=== PATIENT | male | born 1990 | race African-American/Black ===

== ENCOUNTER 2016-12-13 12:18 | Emergency (ER) | payer SELFPAY ==
[2016-12-13 12:32] VITALS: BP 110/77
--- NOTE | 2016-12-13 12:34 | ER Document Report ---
ED Medical Screen (RME) - General Chief Complaint: Diarrhea Stated Complaint: ABDOMINAL PAIN Time seen by provider: 12:32 Mode of Arrival: Ambulatory Information source: Patient Notes: 26-year-old male presents to ED for feeling sick yesterday with some abdominal pain yesterday. He states he's had some diarrhea yesterday and this morning no diarrhea now. States symptoms are all relief now but the doctor states that he has to have a work note come back to work. I have greeted and performed a rapid initial assessment of this patient. A comprehensive ED assessment and evaluation of the patient, analysis of test results and completion of medical decision making process will be conducted by an additional ED providers. TRAVEL OUTSIDE OF THE [place] IN LAST 30 DAYS: No - Related Data Allergies/Adverse Reactions: No Known Allergies Allergy (Unverified 12/17/13 10:28) Past Medical History Musculoskeltal Medical History: Reports Hx Musculoskeletal Trauma Traumatic Medical History: Reports: Hx Fractures - jaw Past Surgical History: Reports: Hx Orthopedic Surgery - jaw - Immunizations Immunizations up to date: Yes Hx Diphtheria, Pertussis, Tetanus Vaccination: Yes - 2015 Physical Exam - Vital signs Vitals: Temp Pulse Resp BP Pulse Ox 98.2 F 63 16 110/77 100 12/13/16 12:31 12/13/16 12:31 12/13/16 12:31 12/13/16 12:31 12/13/16 12:31 Course - Vital Signs Vital signs: Temp Pulse Resp BP Pulse Ox 98.2 F 63 16 110/77 100 12/13/16 12:31 12/13/16 12:31 12/13/16 12:31 12/13/16 12:31 12/13/16 12:31
--- NOTE | 2016-12-13 13:54 | ER Document Report ---
ED GI/ - General Chief Complaint: Abdominal Pain Stated Complaint: ABDOMINAL PAIN Mode of Arrival: Ambulatory Notes: This is a 26-year-old male who presents to the ER because he needs note to return to work. He states that he had a lot of watery diarrhea yesterday and last night. His symptoms have resolved. He denies abdominal pain. There is no vomiting. No fever. His child to has a a lot of nasal discharge is being seen as a patient in the ER right now. TRAVEL OUTSIDE OF THE [place] IN LAST 30 DAYS: No - Related Data Allergies/Adverse Reactions: No Known Allergies Allergy (Unverified 12/17/13 10:28) Past Medical History - General Information source: Patient - Social History Smoking Status: Current Every Day Smoker Family History: Reviewed & Not Pertinent Patient has suicidal ideation: No Patient has homicidal ideation: No Renal/ Medical History: Denies: Hx Peritoneal Dialysis Musculoskeltal Medical History: Reports Hx Musculoskeletal Trauma Traumatic Medical History: Reports: Hx Fractures - jaw Past Surgical History: Reports: Hx Orthopedic Surgery - jaw - Immunizations Immunizations up to date: Yes Hx Diphtheria, Pertussis, Tetanus Vaccination: Yes - 2015 Review of Systems - Review of Systems Constitutional: denies: Fever Cardiovascular: denies: Syncope Respiratory: denies: Short of breath Gastrointestinal: denies: Vomiting Genitourinary: denies: Flank pain Musculoskeletal: denies: Leg swelling Hematologic/Lymphatic: denies: Swollen glands Physical Exam - Vital signs Vitals: Temp Pulse Resp BP Pulse Ox 98.2 F 63 16 110/77 100 12/13/16 12:31 12/13/16 12:31 12/13/16 12:31 12/13/16 12:31 12/13/16 12:31 - General General appearance: Appears well, Alert In distress: None - HEENT Head: Normocephalic, Atraumatic Mucous membranes: Normal - Respiratory Respiratory status: No respiratory distress Breath sounds: Normal - Cardiovascular Rhythm: Regular - Abdominal Inspection: Normal Bowel sounds: Normal - Back Back: Normal - Extremities General upper extremity: Normal inspection General lower extremity: Normal inspection - Neurological Neuro grossly intact: Yes Orientation: AAOx4 Sensory: Normal - Psychological Associated symptoms: Normal affect - Skin Skin Temperature: Warm Skin Moisture: Dry Skin Color: Normal Course - Vital Signs Vital signs: Temp Pulse Resp BP Pulse Ox 98.2 F 57 L 16 110/77 100 12/13/16 12:32 12/13/16 12:32 12/13/16 12:32 12/13/16 12:32 12/13/16 12:32 Discharge - Discharge Clinical Impression: Viral gastroenteritis Condition: Stable Disposition: HOME, SELF-CARE Instructions: Gastroenteritis (adult) ([facility]) Forms: Return to Work
== END 2016-12-13 13:59 | disposition home or self-care (01) ==
LOC: ER 12:18
DX: A08.4 Viral intestinal infection, unspecified (principal); R10.9 Unspecified abdominal pain; F17.200 Nicotine dependence, unspecified, uncomplicated
CPT/HCPCS: 99282

== ENCOUNTER 2017-07-18 09:33 | Emergency (ER) | payer SELFPAY ==
[2017-07-18 09:38] VITALS: BP 134/76
[2017-07-18] MEDS ORDERED: ALBUTEROL SULFATE 0.083% NEB 2.5 MG/3 ML AMPUL NEB ONE (10:13)
--- NOTE | 2017-07-18 10:18 | ER Document Report ---
ED General - General Chief Complaint: Cold Symptoms Stated Complaint: COLD SYMPTOMS Time Seen by Provider: 07/18/17 10:07 Notes: Patient is a 27-year-old male presents emergency department complaining of rhinorrhea, cough, decreased appetite and intermittent fevers for the past 2 days. Patient admits to nonproductive cough with intermittent shortness of breath. Patient states that he does have a history of allergies and has been taking [id number] allergy medication with some improvement but came in today for evaluation and a work note. Patient denies any shortness of breath, difficulty breathing, chest pain, difficulty swallowing, sore throat, chills, nausea, vomiting, diarrhea, constipation, abdominal pain. Otherwise healthy male TRAVEL OUTSIDE OF THE [place] IN LAST 30 DAYS: No - Related Data Allergies/Adverse Reactions: No Known Allergies Allergy (Verified 07/18/17 09:37) Past Medical History - Social History Smoking Status: Current Some Day Smoker Chew tobacco use (# tins/day): No Frequency of alcohol use: Rare Drug Abuse: None Family History: Reviewed & Not Pertinent Renal/ Medical History: Denies: Hx Peritoneal Dialysis Musculoskeltal Medical History: Reports Hx Musculoskeletal Trauma Traumatic Medical History: Reports: Hx Fractures - jaw Past Surgical History: Reports: Hx Orthopedic Surgery - jaw - Immunizations Immunizations up to date: Yes Hx Diphtheria, Pertussis, Tetanus Vaccination: Yes - 2015 Review of Systems - Review of Systems Constitutional: No symptoms reported EENT: See HPI Cardiovascular: No symptoms reported Respiratory: See HPI -: Yes All other systems reviewed and negative Physical Exam - Vital signs Vitals: Temp Pulse Resp BP Pulse Ox 97.9 F 76 20 134/76 H 99 07/18/17 09:37 07/18/17 09:37 07/18/17 09:37 07/18/17 09:37 07/18/17 09:37 - Notes Notes: PHYSICAL EXAM GENERAL: Alert, interacts well. HEAD: Normocephalic, atraumatic. EYES: Pupils equal, round, and reactive to light. Extraocular movements intact. ENT: Oral mucosa moist, tongue midline. NECK: Full range of motion. Supple. Trachea midline. LUNGS: Mild intermittent inspiratory wheezes noted bilaterally without rales, or rhonchi. No respiratory distress. HEART: Regular rate and rhythm. No murmurs, gallops, or rubs. EXTREMITIES: Moves all 4 extremities spontaneously. No edema, radial and dorsalis pedis pulses 2/4 bilaterally. No cyanosis. NEUROLOGICAL: Alert and oriented x4. Normal speech. PSYCH: Normal affect, normal mood. SKIN: Warm, dry, normal turgor. No rashes or lesions noted. Course - Re-evaluation Re-evalutation: 07/18/17 10:46 Patient is a 27-year-old male who is hemodynamically stable, no acute distress afebrile. Patient received breathing treatment and states he clinically feels better. Patient states that he feels like he is able to cough stuff up that is clear mucus. Patient's vital signs stable, no evidence of tachycardia, fever, isolated concern for infiltrate. Patient will be discharged home with bronchitis measures and strict return precautions. Patient stable for discharge - Vital Signs Vital signs: Temp Pulse Resp BP Pulse Ox 97.9 F 76 20 134/76 H 99 07/18/17 09:37 07/18/17 09:37 07/18/17 09:37 07/18/17 09:37 07/18/17 09:37 Discharge - Discharge Clinical Impression: Cough Condition: Good Disposition: HOME, SELF-CARE Additional Instructions: You were seen for symptoms most consistent with bronchitis. This can take up to 12 weeks to fully resolve. This is generally due to a viral infection. Please follow-up with your primary doctor in the next 2-3 days. Return if you develop worsening cough, vomiting, fever >100.4, pass out, begin coughing blood, or have any other symptoms that are concerning to you. Please use the medications prescribed today as directed. Forms: Return to Work Referrals: [facility] [NO LOCAL MD] - Follow up as needed
[2017-07-18] MEDS ORDERED: ALBUTEROL SULFATE HFA (90 MCG/PUFF) 8 GM MDI (1 MDI/ER DISP) IH PRN (10:50)
== END 2017-07-18 10:54 | disposition home or self-care (01) ==
LOC: ER 09:33
DX: R05 Cough (principal); J34.89 Other specified disorders of nose and nasal sinuses; R63.0 Anorexia; R06.02 Shortness of breath; F17.200 Nicotine dependence, unspecified, uncomplicated; R06.2 Wheezing
CPT/HCPCS: 94640; 99283

== ENCOUNTER 2017-08-01 10:51 | Emergency (ER) | payer SELFPAY ==
[2017-08-01] MEDS ORDERED: ONDANSETRON 4 MG TAB.RAPDIS SL ONE (11:15)
--- NOTE | 2017-08-01 11:15 | ER Document Report ---
ED GI/ - General Chief Complaint: Abdominal Pain Stated Complaint: VOMITING Time Seen by Provider: 08/01/17 11:01 Mode of Arrival: Ambulatory Information source: Patient TRAVEL OUTSIDE OF THE [place] IN LAST 30 DAYS: No - HPI Patient complains to provider of: Abdominal pain, Vomiting Onset: Other - 2 days Timing/Duration: Gradual Quality of pain: Cramping Severity at maximum: Mild Severity in ED: Mild Location: Epigastric Associated symptoms: Diarrhea, Nausea, Vomiting Exacerbated by: Denies Relieved by: Denies Similar symptoms previously: No Recently seen / treated by doctor: No Notes: 08/01/17 11:16 Patient is a 27-year-old male presenting to the emergency room today complaining of epigastric abdominal pain is crampy in nature and vomiting which has been going on for the past 2 days, he reports some diaphoresis but no fever , he does have diarrhea, his stepdaughter was ill with similar symptoms recently , he denies any urinary symptoms, no surgeries to the abdomen previously - Related Data Allergies/Adverse Reactions: No Known Allergies Allergy (Verified 08/01/17 10:55) Past Medical History - General Information source: Patient - Social History Smoking Status: Unknown if Ever Smoked Family History: Reviewed & Not Pertinent Renal/ Medical History: Denies: Hx Peritoneal Dialysis Musculoskeltal Medical History: Reports Hx Musculoskeletal Trauma Traumatic Medical History: Reports: Hx Fractures - jaw Past Surgical History: Reports: Hx Orthopedic Surgery - jaw - Immunizations Immunizations up to date: Yes Hx Diphtheria, Pertussis, Tetanus Vaccination: Yes - 2015 Review of Systems - Review of Systems Constitutional: No symptoms reported EENT: No symptoms reported Cardiovascular: No symptoms reported Respiratory: No symptoms reported Gastrointestinal: See HPI Genitourinary: No symptoms reported Male Genitourinary: No symptoms reported Musculoskeletal: No symptoms reported Skin: No symptoms reported Hematologic/Lymphatic: No symptoms reported Neurological/Psychological: No symptoms reported -: Yes All other systems reviewed and negative Physical Exam - Vital signs Vitals: Temp Pulse Resp BP Pulse Ox 98.3 F 69 18 120/79 98 08/01/17 10:53 08/01/17 10:53 08/01/17 10:53 08/01/17 10:53 08/01/17 10:53 Interpretation: Normal - General General appearance: Appears well, Alert - HEENT Head: Normocephalic, Atraumatic Eyes: Normal Pupils: PERRL - Respiratory Respiratory status: No respiratory distress Chest status: Nontender Breath sounds: Normal Chest palpation: Normal - Cardiovascular Rhythm: Regular Heart sounds: Normal auscultation Murmur: No - Abdominal Inspection: Normal Distension: No distension Bowel sounds: Normal Tenderness: Tender - Mild epigastric tenderness Organomegaly: No organomegaly - Back Back: Normal, Nontender - Extremities General upper extremity: Normal inspection, Nontender, Normal color, Normal ROM , Normal temperature General lower extremity: Normal inspection, Nontender, Normal color, Normal ROM , Normal temperature, Normal weight bearing. No: Cheryl's sign - Neurological Neuro grossly intact: Yes Cognition: Normal Orientation: AAOx4 [place] Coma Scale Eye Opening: Spontaneous [place] Coma Scale Verbal: Oriented [place] Coma Scale Motor: Obeys Commands [place] Coma Scale Total: 15 Speech: Normal Motor strength normal: LUE, RUE, LLE, RLE Sensory: Normal - Psychological Associated symptoms: Normal affect, Normal mood - Skin Skin Temperature: Warm Skin Moisture: Dry Skin Color: Normal Course - Re-evaluation Re-evalutation: 08/01/17 12:05 Patient reports feeling much better after receiving Zofran, no longer nauseated and no further vomiting, lab values were discussed with him which are unremarkable, symptoms are consistent with viral gastroenteritis, patient will be discharged with Zofran dose pack and information for follow-up, advised to return if any additional concerns, patient acknowledges understanding and agreement with this plan - Vital Signs Vital signs: Temp Pulse Resp BP Pulse Ox 98.3 F 69 18 120/79 98 08/01/17 10:53 08/01/17 10:53 08/01/17 10:53 08/01/17 10:53 08/01/17 10:53 - Laboratory Result Diagrams: 08/01/17 11:20 08/01/17 11:20 Laboratory results interpreted by me: 08/01/17 11:20 Glucose 62 L Calcium 10.3 H Discharge - Discharge Clinical Impression: Viral gastroenteritis Condition: Stable Disposition: HOME, SELF-CARE Instructions: Antinausea Medication ([facility]), Gastroenteritis (adult) ([facility]), Vomiting ([facility]) Additional Instructions: Follow up with your primary care provider in one to 2 days. Return to the emergency room immediately if symptoms worsen or any additional concerns. Forms: Return to Work
[2017-08-01 11:45] LABS: ABSOLUTE EOSINOPHILS # (AUTO) 0.3 10^3/uL (0.0-0.6); ABSOLUTE LYMPHOCYTES (AUTO) 1.5 10^3/uL (0.5-4.7); ABSOLUTE MONOCYTES (AUTO) 0.5 10^3/uL (0.1-1.4); ABSOLUTE NEUT (AUTO) 3.7 10^3/uL (1.7-8.2); APPEARANCE,URINE CLEAR; BASOPHILS % (AUTO) 0.8 % (0-2); BILIRUBIN,URINE NEGATIVE (NEGATIVE); EOSINOPHILS % (AUTO) 5.4 % (0-6); GLUCOSE, URINE NEGATIVE (NEGATIVE); HEMATOCRIT 46.2 % (37.9-51.0); HEMOGLOBIN 15.2 g/dL (13.5-17.0); HGB HCT DIFFERENCE -0.6; KETONES,URINE NEGATIVE (NEGATIVE); LEUKOCYTE ESTERASE,URINE NEGATIVE (NEGATIVE); LYMPHOCYTES % (AUTO) 24.5 % (13-45); MEAN CORPUSCULAR HEMOGLOBIN 29.4 pg (27.0-33.4); MEAN CORPUSCULAR HGB CONC 32.9 g/dL (32.0-36.0); MEAN CORPUSCULAR VOLUME 89 fl (80-97); MONOCYTES % (AUTO) 7.6 % (3-13); NITRITE,URINE NEGATIVE (NEGATIVE); PROTEIN,URINE NEGATIVE (NEGATIVE); RED BLOOD COUNT 5.16 10^6/uL (4.35-5.55); RED CELL DISTRIBUTION WIDTH 13.5 % (11.5-14.0); SEGMENTED NEUTROPHILS % (AUTO) 61.7 % (42-78); URINE SPECIFIC GRAVITY 1.019; UROBILINOGEN,URINE NEGATIVE mg/dL (<2.0); WHITE BLOOD COUNT 5.9 10^3/uL (4.0-10.5)
[2017-08-01 11:59] LABS: ALANINE AMINOTRANSFERASE 21 U/L (21-72); ALBUMIN 4.8 g/dL (3.5-5.0); ALKALINE PHOSPHATASE 55 U/L (38-126); ANION GAP 12 (5-19); ASPARTATE AMINO TRANSFERASE 19 U/L (17-59); BILIRUBIN,DIRECT 0.4 mg/dL (0.0-0.4); BILIRUBIN,TOTAL 0.8 mg/dL (0.2-1.3); BLOOD UREA NITROGEN 11 mg/dL (7-20); CALCIUM 10.3 mg/dL (8.4-10.2); CARBON DIOXIDE 30 mmol/L (22-30); CHLORIDE 102 mmol/L (98-107); CREATININE RESULT 0.92 mg/dL (0.52-1.25); GLUCOSE 62 mg/dL (75-110); LIPASE 83.7 U/L (23-300); POTASSIUM 4.7 mmol/L (3.6-5.0); SODIUM 144.1 mmol/L (137-145); TOTAL PROTEIN 7.8 g/dL (6.3-8.2)
[2017-08-01] MEDS ORDERED: ONDANSETRON ODT 4 MG TAB (6 TAB/DSPK) PO PRN (12:06)
[2017-08-01 12:23] VITALS: BP 127/70
== END 2017-08-01 12:23 | disposition home or self-care (01) ==
LOC: ER 10:51
DX: A08.4 Viral intestinal infection, unspecified (principal); R10.9 Unspecified abdominal pain; R11.10 Vomiting, unspecified; R10.13 Epigastric pain
CPT/HCPCS: 99284; 36415; 83690; 85025; 80053; 81001; S0119

== ENCOUNTER 2019-01-05 07:40 | Emergency (ER) | payer SELFPAY ==
[2019-01-05 07:50] VITALS: BP 116/78
[2019-01-05] MEDS ORDERED: ALBUTEROL SULFATE HFA (90 MCG/PUFF) 8 GM MDI (1 MDI/ER DISP) IH ONE (08:41)
--- NOTE | 2019-01-05 08:41 | ER Document Report ---
HPI - HPI Patient complains to provider of: fevers, chills, headache Time Seen by Provider: 01/05/19 08:10 Pain Level: 5 Context: Healthy 28-year-old male with no medical problems presents to the emergency department for fever, chills, headache, pain in abdomen when coughing. Patient states is been going on for 2 days. Patient states his cough is productive with green mucus. Patient states his symptoms are worse when he wakes up. 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 Patient denies any lightheadedness or dizziness, earache or sore throat, wheezing, nausea or vomiting, urinary symptoms. - REPRODUCTIVE Reproductive: DENIES: : - DERM Skin Color: Normal Past Medical History - Social History Smoking Status: Current Every Day Smoker Frequency of alcohol use: Occasional Drug Abuse: Marijuana Family History: Reviewed & Not Pertinent Patient has suicidal ideation: No Patient has homicidal ideation: No Renal/ Medical History: Denies: Hx Peritoneal Dialysis Musculoskeletal Medical History: Reports Hx Musculoskeletal Trauma Traumatic Medical History: Reports: Hx Fractures - jaw Past Surgical History: Reports: Hx Orthopedic Surgery - jaw, R hand - Immunizations Immunizations up to date: Yes Hx Diphtheria, Pertussis, Tetanus Vaccination: Yes - 2016 Vertical Provider Document - CONSTITUTIONAL Notes: PHYSICAL EXAMINATION: Reviewed vital signs and charting by RN GENERAL: Alert, interacts well. No acute distress. HEAD: Normocephalic, atraumatic. EYES: Pupils equal, round. Extraocular movements intact. ENT: TMs visualized and pearly hollis, no erythema or bulging. No tonsillar hypertrophy or erythema, uvula is midline. Oral mucosa moist, tongue midline. NECK: Full range of motion. Supple. Trachea midline. LUNGS: Clear to auscultation bilaterally, no wheezes, rales, or rhonchi. No respiratory distress. HEART: Regular rate and rhythm. No murmur ABDOMEN: soft, non-tender. Non-distended. Bowel sounds present in all 4 quadrants. no McBurney's point tenderness, no Weston sign. EXTREMITIES: Moves all 4 extremities spontaneously. No edema, No cyanosis. NEUROLOGICAL: Alert and oriented. Normal speech. PSYCH: Normal affect, normal mood. SKIN: Warm, dry, normal turgor. No rashes or lesions noted. - INFECTION CONTROL TRAVEL OUTSIDE OF THE [place] IN LAST 30 DAYS: No Course - Re-evaluation Re-evalutation: 01/05/19 08:38 Well-appearing 28-year-old male presents for symptoms consistent with an upper respiratory virus. Patient is afebrile and symptoms have been going on for about 2 days. Uvula is midline and there is no evidence of any deep space infection. Lungs are clear to auscultation but patient complains of subjective chest tightness and shortness of breath. I will send him home with an albuterol inhaler and spacer. - Vital Signs Vital signs: Temp Pulse Resp BP Pulse Ox 98.7 F 81 16 116/78 98 01/05/19 07:46 01/05/19 07:46 01/05/19 07:46 01/05/19 07:46 01/05/19 07:46 Discharge - Discharge Clinical Impression: Upper respiratory infection, acute Condition: Good Disposition: HOME, SELF-CARE Instructions: Acetaminophen, Fever ([facility]), Upper Respiratory Illness ([facility]) Additional Instructions: You are seen in the emergency department this morning for symptoms most consistent with an upper respiratory virus. It does not appear that you do have the flu but nonetheless treatment would be the same. For your productive cough you can take Mucinex as directed on the package. If you develop a persistent cough that is not productive you can take Robitussin as prescribed on the package to help suppress your cough. You can take Tylenol 1000 mg every 6 hours and Motrin 600 mg every 6 hours if you have any pain or discomfort or headache. Please increase your fluids. If you develop severe sore throat or unable to breathe, pass out, have intractable nausea or vomiting, or have any other concerning symptoms please immediately return to the emergency department. Forms: Return to Work
== END 2019-01-05 09:08 | disposition home or self-care (01) ==
LOC: ER 07:40
DX: J06.9 Acute upper respiratory infection, unspecified (principal); R50.9 Fever, unspecified; R51 Headache; R10.9 Unspecified abdominal pain; R05 Cough; F17.200 Nicotine dependence, unspecified, uncomplicated; F12.10 Cannabis abuse, uncomplicated
CPT/HCPCS: 99283; J3490

== ENCOUNTER 2019-03-27 11:57 | Emergency (ER) | payer SELFPAY ==
--- NOTE | 2019-03-27 12:44 | ER Document Report ---
HPI - HPI Patient complains to provider of: bilateral low back pain Time Seen by Provider: 03/27/19 12:27 Onset: Other - 3-4 days Onset/Duration: Waxing and waning Quality of pain: Achy Pain Level: 3 Context: Patient presents emergency department with complaints of bilateral low back pain that started 3 to 4 days ago. Reports symptoms come and go. Reports he justice alegre drinks soda not enough water. Since he has been drinking increased amount of water his symptoms have decreased. Denies other symptoms such as fever vomiting diarrhea. Denies history of injury. Reports he is voiding without problems denies testicular pain. Associated Symptoms: None Exacerbated by: Denies Relieved by: Denies Similar symptoms previously: No Recently seen / treated by doctor: No - REPRODUCTIVE Reproductive: DENIES: : Past Medical History - General Information source: Patient - Social History Smoking Status: Current Every Day Smoker Cigarette use (# per day): Yes Frequency of alcohol use: None Drug Abuse: None Occupation: [employer] Family History: Reviewed & Not Pertinent Patient has suicidal ideation: No Patient has homicidal ideation: No Renal/ Medical History: Denies: Hx Peritoneal Dialysis Musculoskeletal Medical History: Reports Hx Musculoskeletal Trauma - Fractured jaw Traumatic Medical History: Reports: Hx Fractures - jaw Past Surgical History: Reports: Hx Orthopedic Surgery - jaw, R hand - Immunizations Immunizations up to date: Yes Hx Diphtheria, Pertussis, Tetanus Vaccination: Yes - 2016 Vertical Provider Document - CONSTITUTIONAL Agree With Documented VS: Yes Exam Limitations: No Limitations General Appearance: WD/WN, No Apparent Distress - Nontoxic looking - INFECTION CONTROL TRAVEL OUTSIDE OF THE [place] IN LAST 30 DAYS: No - HEENT HEENT: Atraumatic, Normocephalic. negative: Conjuctival Injection - NECK Neck: Normal Inspection, Supple. negative: Lymphadenopathy-Left, Lymphadenopat hy-Right - RESPIRATORY Respiratory: Breath Sounds Normal, No Respiratory Distress, Chest Non-Tender - CARDIOVASCULAR Cardiovascular: Regular Rate, Regular Rhythm - GI/ABDOMEN Gastrointestinal: Abdomen Soft, Abdomen Non-Tender - BACK Back: Normal Inspection - No complaints of back pain at this time good distal movement and sensation. negative: CVA Tenderness-Right, CVA Tenderness-Left - MUSCULOSKELETAL/EXTREMETIES Musculoskeletal/Extremeties: PAMELA PEARCE - NEURO Level of Consciousness: Awake, Alert, Appropriate Motor/Sensory: No Motor Deficit - DERM Integumentary: Warm, Dry Course - Re-evaluation Re-evalutation: 03/27/19 12:35 Patient reports he has been drinking lots of water since last night feels much better. Is just here to be checked out. Dictation of this chart was performed using voice recognition software; theref ore, there may be some unintended grammatical errors. 03/27/19 13:32 Urine negative patient discharged home instructed to increase fluids return for increased pain or concerns - Vital Signs Vital signs: Temp Pulse Resp BP Pulse Ox 98.0 F 67 14 119/70 99 03/27/19 12:19 03/27/19 12:19 03/27/19 12:19 03/27/19 12:19 03/27/19 12:19 Discharge - Discharge Clinical Impression: Low back pain Qualifiers: Chronicity: acute Back pain laterality: bilateral Sciatica presence: without sciatica Qualified Code(s): M54.5 - Low back pain Condition: Stable Disposition: HOME, SELF-CARE Instructions: Acetaminophen, Low Back Pain ([facility]) Additional Instructions: *You have been evaluated for back pain *Take tylenol as indicated *stay well hydrated *Follow up with a primary care provider within one week for recheck *Return to ED for worsening condition, changes, needs Forms: Return to Work
[2019-03-27 13:06] LABS: APPEARANCE,URINE CLEAR; BILIRUBIN,URINE NEGATIVE (NEGATIVE); COLOR,URINE YELLOW; GLUCOSE, URINE NEGATIVE (NEGATIVE); KETONES,URINE NEGATIVE (NEGATIVE); LEUKOCYTE ESTERASE,URINE NEGATIVE (NEGATIVE); NITRITE,URINE NEGATIVE (NEGATIVE); PROTEIN,URINE NEGATIVE (NEGATIVE)
[2019-03-27 13:44] VITALS: BP 126/81
== END 2019-03-27 13:36 | disposition home or self-care (01) ==
LOC: ER 11:57
DX: M54.5 Low back pain (principal); F17.210 Nicotine dependence, cigarettes, uncomplicated
CPT/HCPCS: 81001; 99284

== ENCOUNTER 2019-12-06 09:03 | Emergency (ER) | payer SELFPAY ==
[2019-12-06 09:07] VITALS: BP 121/76
--- NOTE | 2019-12-06 09:43 | ER Document Report ---
HPI - HPI Time Seen by Provider: 12/06/19 09:22 Pain Level: 2 Notes: 29-year-old male presents to the emergency room for evaluation of right eye redness and exudate that he noticed today. Was sent over by work to get evaluated. Denies any blurred vision double vision or loss of vision. Does not wear contacts. Son was recently diagnosed with bacterial conjunctivitis. Worse with time, nothing makes better. Has not tried hyic-hyw-dhaewrx medications. Is not tried a warm washcloth. Denies any chest pain shortness of breath, neck pain, abdominal pain, nausea vomiting, headache or facial pain. REVIEW OF SYSTEMS:reviewed vital signs by RN CONSTITUTIONAL : Denies fever, chills, or sweats. Denies recent illness. EENT: Reports right eye redness. denies ear, throat, or mouth pain or symptoms. Denies nasal or sinus congestion or discharge. Denies throat, tongue, or mouth swelling or difficulty swallowing. CARDIOVASCULAR: Denies chest pain. Denies palpitations or racing or irregular heart beat. Denies ankle edema. RESPIRATORY: Denies cough, cold, or chest congestion. Denies shortness of breath, difficulty breathing, or wheezing. GASTROINTESTINAL: Denies abdominal pain or distention. Denies nausea, vomiting, or diarrhea. Denies blood in vomitus, stools, or per rectum. Denies black, tarry stools. Denies constipation. GENITOURINARY: Denies difficulty urinating, painful urination, burning, frequency, blood in urine, or discharge. MUSCULOSKELETAL: Denies back or neck pain or stiffness. Denies joint pain or swelling. SKIN: Denies rash, lesions or sores. HEMATOLOGIC : Denies easy bruising or bleeding. LYMPHATIC: Denies swollen, enlarged glands. NEUROLOGICAL: Denies confusion or altered mental status. Denies passing out or loss of consciousness. Denies dizziness or lightheadedness. Denies headache. Denies weakness or paralysis or loss of use of either side. Denies problems with gait or speech. Denies sensory loss, numbness, or tingling. Denies seizures. PSYCHIATRIC: Denies anxiety or stress. Denies depression, suicidal ideation, or homicidal ideation. ALL OTHER SYSTEMS REVIEWED AND NEGATIVE. Dictation was performed using [employer] voice recognition software PHYSICAL EXAMINATION: GENERAL: Well-appearing, well-nourished and in no acute distress. HEAD: Atraumatic, normocephalic. EYES: PERRLA, normal accommodation, EMOI, peripheral vision bilaterally and equally. noted right eye with exudates noted. red reflex wnl. right conjunctiva injected and with erythema. Normal fundi and optic discs. Corneas grossly clear. No nystagmus bilaterally. No ptosis, photophobia. Pupils equal round and reactive to light, extraocular movements intact, sclera anicteric, conjunctiva are normal. ENT: Nares patent, oropharynx clear without exudates. Moist mucous membranes. NECK: Normal range of motion, supple without lymphadenopathy LUNGS: Breath sounds clear to auscultation bilaterally and equal. No wheezes rales or rhonchi. HEART: Regular rate and rhythm without murmurs ABDOMEN: Soft, nontender, nondistended abdomen. No guarding, no rebound. No masses appreciated. Musculoskeletal: Normal range of motion, no pitting or edema. No cyanosis. NEUROLOGICAL: Cranial nerves grossly intact. Normal speech, normal gait. Normal sensory, motor exams PSYCH: Normal mood, normal affect. SKIN: Warm, Dry, normal turgor, no rashes or lesions noted. - CONSTITUTIONAL Constitutional: DENIES: Fever, Chills - EENT EENT: REPORTS: Eye problems - right eye - REPRODUCTIVE Reproductive: DENIES: : Past Medical History - General Information source: Patient - Social History Smoking Status: Current Every Day Smoker Chew tobacco use (# tins/day): No Frequency of alcohol use: Rare Drug Abuse: Marijuana Family History: Reviewed & Not Pertinent Patient has suicidal ideation: No Patient has homicidal ideation: No Renal/ Medical History: Denies: Hx Peritoneal Dialysis Musculoskeletal Medical History: Reports Hx Musculoskeletal Trauma - Fractured jaw Traumatic Medical History: Reports: Hx Fractures - jaw Past Surgical History: Reports: Hx Orthopedic Surgery - jaw, R hand - Immunizations Immunizations up to date: Yes Hx Diphtheria, Pertussis, Tetanus Vaccination: Yes - 2016 [employer] Provider Document - INFECTION CONTROL TRAVEL OUTSIDE OF THE [place] IN LAST 30 DAYS: No Course - Re-evaluation Re-evalutation: 12/06/19 09:42 Afebrile vital stable no distress. Nurse's notes reviewed. Patient presents with symptoms most consistent with a bacterial conjunctivitis. Bilateral eye involvement with purulent drainage. Patient does also have associated upper respiratory symptoms again suggesting a viral etiology of the conjunctivitis. Pt is otherwise very well in appearance, no acute distress, vitals within normal limits. pt will be discharged with a prescription for Polytrim eyedrops. Patient does not wear contacts. Advised to follow-up without neurologist and primary care provider as needed if symptoms become worse. Pt is in agreement with this plan and verbalized indications to return to the emergency department. - Vital Signs Vital signs: Temp Pulse Resp BP Pulse Ox 97.4 F 67 16 121/76 99 12/06/19 09:06 12/06/19 09:06 12/06/19 09:06 12/06/19 09:06 12/06/19 09:06 Discharge - Discharge Clinical Impression: Bacterial conjunctivitis of right eye Condition: Stable Disposition: HOME, SELF-CARE Instructions: Conjunctivitis ([facility]), Antibiotic Therapy ([facility]), Eyedrop Use ([facility]) Prescriptions: Polymyxin B Sulfate/Tmp [Polytrim Oph Soln 10 ml] 1 drop OP ASDIR PRN #1 bottle PRN Reason: Forms: Return to Work Referrals: PHILLY MORELAND DO [ACTIVE STAFF] - Follow up as needed
== END 2019-12-06 09:53 | disposition home or self-care (01) ==
LOC: ER 09:03
DX: H10.9 Unspecified conjunctivitis (principal); B96.89 Other specified bacterial agents as the cause of diseases classified elsewhere; F17.200 Nicotine dependence, unspecified, uncomplicated; F12.10 Cannabis abuse, uncomplicated
CPT/HCPCS: 99282